=== PATIENT | female | born 1965 | race Two or more races ===

== ENCOUNTER 2022-10-30 15:50 | Emergency (ER) | payer OTHER ==
[~2022-10-30] VITALS: Ht 147.3 cm; Wt 54.5 kg
[2022-10-30] MEDS ORDERED: CYCL-837 PO (18:49)
[2022-10-30] MEDS ORDERED: ACET-1158 PO (18:49)
[2022-10-30 18:55] VITALS: BP 137/82
== END 2022-10-30 19:05 | disposition home or self-care (01) ==
LOC: EDBD 15:50 → ER 15:50
DX: S16.1XXA Strain of muscle, fascia and tendon at neck level, initial encounter (principal); R51.9 Headache, unspecified; V49.49XA Driver injured in collision with other motor vehicles in traffic accident, initial encounter; Y93.89 Activity, other specified; Y92.488 Other paved roadways as the place of occurrence of the external cause; Y99.8 Other external cause status